=== PATIENT | female | born 1975 | race Caucasian/White ===

== ENCOUNTER 2017-07-14 15:20 | Emergency (ER) | payer SELFPAY ==
[~2017-07-14] VITALS: Ht 162.6 cm; Wt 88.4 kg
[~2017-07-14 15:20] MED LIST: CIPRO500 MG PO; FLAGYL500 MG PO; LORTAB 5-500 T1 EACH PO; MOBIC7.5 MG PO
[2017-07-14] MEDS ORDERED: AUGMENTIN875 MG PO (16:19)
[2017-07-14 17:01] VITALS: BP 133/68
== END 2017-07-14 17:33 | disposition home or self-care (01) ==
LOC: EME 15:20
DX: H66.93 Otitis media, unspecified, bilateral (principal); H72.91 Unspecified perforation of tympanic membrane, right ear; F17.200 Nicotine dependence, unspecified, uncomplicated; J45.909 Unspecified asthma, uncomplicated; F32.9 Major depressive disorder, single episode, unspecified; Z88.6 Allergy status to analgesic agent
CPT/HCPCS: 99281; 99283